=== PATIENT | female | born 1950 | race Asian ===

== ENCOUNTER 2018-08-23 20:40 | Emergency (ER) | payer MEDICARE ==
[~2018-08-23] VITALS: Ht 162.6 cm; Wt 59.1 kg
[2018-08-23] MEDS ORDERED: IV NORMAL SALINE 1000ML BAG 1,000 ML IV ONE (21:00)
[2018-08-23 21:19] LABS: PROTHROMBIN TIME PATIENT 12.1 SEC (11.7-14.0)
--- NOTE | 2018-08-23 21:19 | RAD ---
EXAM: CT Head without IV contrast CLINICAL HISTORY: weakness, slurred speech, no priors COMPARISON: None. TECHNIQUE: Routine CT of the head without contrast. Soft tissues and bone windows were reviewed. PQRS compliance statement - One or more of the following individualized dose reduction techniques were utilized for this study: 1. Automated exposure control 2. Adjustment of the mA and/or kV according to patient size 3. Use of iterative reconstruction technique FINDINGS: There is no evidence of hemorrhage, mass or extra-axial fluid collection. Cotter-white differentiation is maintained with no evidence of edema. There is no mass effect or shift of the intracranial structures. The ventricles, basilar cisterns and cortical sulci are normal in size and configuration for the patients stated age. The cerebellum and brainstem are unremarkable. The calvarium demonstrates no evidence of fracture or focal lesion. Mastoid air cells are clear. Patchy opacification of the scattered ethmoid air cells and right maxillary sinus are partially profiled, likely sinusitis. The visualized portions of the orbits are normal. IMPRESSION: 1. No evidence for acute intracranial hemorrhage 2. Patchy opacification of the scattered ethmoid air cells and right maxillary sinus are partially profiled, likely sinusitis. ::: This critical result of no evidence for acute intracranial hemorrhage was verbally reported by Ba Lobo MD to Dr. Olivarez on 08/23/2018 9:14 PM. ::: Electronically signed by: Ba Lobo MD (08/23/2018 9:15 PM) [facility]
[2018-08-23 21:25] LABS: CALCIUM 9.2 mg/dL (8.5-10.1); CREATININE 0.7 mg/dL (0.6-1.0); GFR 83.5; POTASSIUM 3.4 mmol/L (3.5-5.1)
[2018-08-23] MEDS ORDERED: DEXAMETHASONE SOD PHOS 20 MG/5 ML VIAL. IV ONE (21:30)
[2018-08-23] MEDS ORDERED: METOCLOPRAMIDE HCL 10 MG/2 ML VIAL. IV ONE (21:30)
[2018-08-23] MEDS ORDERED: ASPIRIN 325 MG TABLET PO ONE (21:30)
[2018-08-23] MEDS ORDERED: diphenhydrAMINE 50 MG/ML VIAL IVP ONE (21:30)
[2018-08-23] MEDS ORDERED: IOHEXOL 350 MG/ML 100 ML VIAL. IV ONE (21:30)
[2018-08-23 21:31] LABS: ALBUMIN 3.8 g/dL (3.4-5.0); ALBUMIN/GLOBULIN RATIO 0.9 (1.0-1.7); TOTAL BILIRUBIN 0.6 mg/dL (0.2-1.0); TOTAL PROTEIN 8.1 g/dL (6.4-8.2)
[2018-08-23] MEDS ORDERED: CONTRAST GIVEN. MC PRN (21:45)
[2018-08-23 22:02] LABS: BASO % 1 % (0-3); EOS # 0.3 x10^3/uL (0.0-0.7); EOS % 4 % (0-3); HEMATOCRIT 41.8 % (36.0-47.0); LYMPH # 3.3 x10^3/uL (1.0-4.8); LYMPH % 49 % (24-48); MEAN CORPUSCULAR HEMOGLOBIN 27 pg (25-35); MEAN CORPUSCULAR HGB CONC 34 g/dL (31-37); MEAN CORPUSCULAR VOLUME 81 fL (79-100); MONO # 0.5 x10^3/uL (0.0-1.1); MONO % 7 % (0-9); NEUT # 2.6 x10^3uL (1.8-7.7); NEUT % 39 % (31-73); PLATELET COUNT 212 x10^3/uL (140-400); RED BLOOD COUNT 5.18 x10^6/uL (3.50-5.40); RED CELL DISTRIBUTION WIDTH 12.9 % (11.5-14.5); WHITE BLOOD COUNT 6.7 x10^3/uL (4.0-11.0)
--- NOTE | 2018-08-23 23:11 | RAD ---
EXAM: CT ANGIOGRAM OF THE HEAD AND NECK WITH CONTRAST CLINICAL HISTORY: Right-sided weakness; Omni 350, 75ml COMPARISON: None available. TECHNIQUE: CT angiogram of the head and neck was performed following the administration of IV contrast. Multiplanar reconstructed images were obtained including 3D reconstructed images performed on an independent work station. Stenosis if present in the carotid arteries were measured using NASCET criteria. PQRS compliance statement - One or more of the following individualized dose reduction techniques were utilized for this study: 1. Automated exposure control 2. Adjustment of the mA and/or kV according to patient size 3. Use of iterative reconstruction technique FINDINGS: CTA of the intracranial circulation reveals normal appearing distal internal carotid arteries including the distal cervical, petrous, cavernous and supraclinoid portions. 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 The anterior cerebral arteries are well visualized and without evidence of stenosis or occlusion. The middle cerebral arteries are well visualized and without evidence of stenosis or occlusion. The posterior cerebral arteries are well visualized and without evidence of stenosis or occlusion. The vertebral basilar system is normal with no evidence of stenosis or occlusion. In the neck, the origins of the great vessels are unremarkable. The common carotid arteries, bilaterally are normal with no evidence of significant stenosis or occlusion. The internal carotid arteries are normal bilaterally with no evidence of stenosis. The vertebral arteries in the neck are well visualized bilaterally and unremarkable. Patchy opacification of the right maxillary sinus, possibly sinusitis. IMPRESSION: No evidence for high-grade stenosis, aneurysmal dilatation or occlusion of the intracranial or extracranial circulation. Electronically signed by: Ba Lobo MD (08/23/2018 11:08 PM) [facility]
[2018-08-23 23:50] VITALS: BP 121/68
[2018-08-24] MEDS ORDERED: BUTA1TAB23 PO (00:01)
--- NOTE | 2018-08-24 00:01 | PHYS DOC ---
Past Medical History Additional Past Medical Histor: DEHYDRATION, STOMACH ULCERS Past Surgical History: No Surgical History Alcohol Use: None Drug Use: None Adult General Chief Complaint Chief Complaint: NEURO SYMPTOMS/DEFICITS HPI HPI Patient is a 68 year old [f__sex] who presents with [] Review of Systems Review of Systems Constitutional: Denies fever or chills [] Eyes: Denies change in visual acuity, redness, or eye pain [] HENT: Denies nasal congestion or sore throat [] Respiratory: Denies cough or shortness of breath [] Cardiovascular: No additional information not addressed in HPI [] GI: Denies abdominal pain, nausea, vomiting, bloody stools or diarrhea [] : Denies dysuria or hematuria [] Musculoskeletal: Denies back pain or joint pain [] Integument: Denies rash or skin lesions [] Neurologic: Denies headache, focal weakness or sensory changes [] Endocrine: Denies polyuria or polydipsia [] All other systems were reviewed and found to be within normal limits, except as documented in this note. Current Medications Current Medications Current Medications Medications (Trade) Dose Ordered Sig/Manuel Start Time Stop Time Status Last Admin Dose Admin Aspirin (Ana Aspirin) 325 mg 1X ONCE 08/23/18 21:30 08/23/18 21:31 DC 08/23/18 21:40 325 MG Dexamethasone Sodium Phosphate (Decadron) 10 mg 1X ONCE 08/23/18 21:30 08/23/18 21:31 DC 08/23/18 21:35 10 MG Diphenhydramine HCl (Benadryl) 50 mg 1X ONCE 08/23/18 21:30 08/23/18 21:31 DC 08/23/18 21:38 50 MG Info (CONTRAST GIVEN -- Rx MONITORING) 1 each PRN DAILY PRN 08/23/18 21:45 08/24/18 00:19 DC Iohexol (Omnipaque 350 Mg/ml) 75 ml 1X ONCE 08/23/18 21:30 08/23/18 21:31 DC 08/23/18 22:00 75 ML Metoclopramide HCl (Reglan Vial) 10 mg 1X ONCE 08/23/18 21:30 08/23/18 21:31 DC 08/23/18 21:36 10 MG Sodium Chloride 1,000 ml @ 1,000 mls/hr 1X ONCE 08/23/18 21:00 08/23/18 21:59 DC 08/23/18 21:30 1,000 MLS/HR Allergies Allergies Allergies Coded Allergies Type Severity Reaction Last Updated Verified No Known Drug Allergies 08/23/18 No Physical Exam Physical Exam Constitutional: Well developed, well nourished, no acute distress, non-toxic appearance. [] HENT: Normocephalic, atraumatic, bilateral external ears normal, oropharynx moist, no oral exudates, nose normal. [] Eyes: PERRLA, EOMI, conjunctiva normal, no discharge. [] Neck: Normal range of motion, no tenderness, supple, no stridor. [] Cardiovascular:Heart rate regular rhythm, no murmur [] Lungs & Thorax: Bilateral breath sounds clear to auscultation [] Abdomen: Bowel sounds normal, soft, no tenderness, no masses, no pulsatile masses. [] Skin: Warm, dry, no erythema, no rash. [] Back: No tenderness, no CVA tenderness. [] Extremities: No tenderness, no cyanosis, no clubbing, ROM intact, no edema. [] Neurologic: Alert and oriented X 3, normal motor function, normal sensory function, no focal deficits noted. [] Psychologic: Affect normal, judgement normal, mood normal. [] Current Patient Data Vital Signs Vital Signs Date Time Temp Pulse Resp B/P (MAP) Pulse Ox O2 Delivery O2 Flow Rate FiO2 08/23/18 23:50 88 17 95 08/23/18 20:45 97.7 182/98 (126) Room Air 97.7 Lab Values Laboratory Tests Test 08/23/18 20:50 08/23/18 20:51 White Blood Count 6.7 x10^3/uL (4.0-11.0) Red Blood Count 5.18 x10^6/uL (3.50-5.40) Hemoglobin 14.0 g/dL (12.0-15.5) Hematocrit 41.8 % (36.0-47.0) Mean Corpuscular Volume 81 fL (79-100) Mean Corpuscular Hemoglobin 27 pg (25-35) Mean Corpuscular Hemoglobin Concent 34 g/dL (31-37) Red Cell Distribution Width 12.9 % (11.5-14.5) Platelet Count 212 x10^3/uL (140-400) Neutrophils (%) (Auto) 39 % (31-73) Lymphocytes (%) (Auto) 49 % (24-48) H Monocytes (%) (Auto) 7 % (0-9) Eosinophils (%) (Auto) 4 % (0-3) H Basophils (%) (Auto) 1 % (0-3) Neutrophils # (Auto) 2.6 x10^3uL (1.8-7.7) Lymphocytes # (Auto) 3.3 x10^3/uL (1.0-4.8) Monocytes # (Auto) 0.5 x10^3/uL (0.0-1.1) Eosinophils # (Auto) 0.3 x10^3/uL (0.0-0.7) Basophils # (Auto) 0.0 x10^3/uL (0.0-0.2) Prothrombin Time 12.1 SEC (11.7-14.0) Prothrombin Time INR 0.9 (0.8-1.1) PTT 28 SEC (24-38) Sodium Level 143 mmol/L (136-145) Potassium Level 3.4 mmol/L (3.5-5.1) L Chloride Level 104 mmol/L (98-107) Carbon Dioxide Level 31 mmol/L (21-32) Anion Gap 8 (6-14) Blood Urea Nitrogen 7 mg/dL (7-20) Creatinine 0.7 mg/dL (0.6-1.0) Estimated GFR (Cockcroft-Gault) 83.5 BUN/Creatinine Ratio 10 (6-20) Glucose Level 159 mg/dL (70-99) H Calcium Level 9.2 mg/dL (8.5-10.1) Magnesium Level 2.0 mg/dL (1.8-2.4) Total Bilirubin 0.6 mg/dL (0.2-1.0) Aspartate Amino Transferase (AST) 23 U/L (15-37) Alanine Aminotransferase (ALT) 27 U/L (14-59) Alkaline Phosphatase 68 U/L (46-116) Creatine Kinase 183 U/L (26-192) Creatine Kinase MB (Mass) 2.5 ng/mL (0.0-3.6) Creatine Kinase MB Relative Index 1.4 % (0-4) Troponin I Quantitative < 0.017 ng/mL (0.000-0.055) Total Protein 8.1 g/dL (6.4-8.2) Albumin 3.8 g/dL (3.4-5.0) Albumin/Globulin Ratio 0.9 (1.0-1.7) L Glucose (Fingerstick) 158 mg/dL (70-99) H Laboratory Tests 08/23/18 20:50 Laboratory Tests 08/23/18 20:50 EKG EKG EKG taken on 08/23/2018 at 2053. Sinus rhythm at 95 bpm. T wave inversion in leads V1 through V3. No STEMI appreciated. Radiology/Procedures Radiology/Procedures [] Course & Med Decision Making Course & Med Decision Making Pertinent Labs and Imaging studies reviewed. (See chart for details) [] Dragon Disclaimer Dragon Disclaimer This electronic medical record was generated, in whole or in part, using a voice recognition dictation system. Departure Departure Impression: Primary Impression: Atypical migraine Disposition: 01 HOME, SELF-CARE Condition: IMPROVED Referrals: SURJIT VARGAS (PCP) MORALES NASH MD Patient Instructions: Migraine Headache, Govw-os-Riup Additional Instructions: If symptoms become worse or for return of numbness, vision changes, or weakness , return immediately to the Emergency Department. Scripts Butalb/Acetaminophen/Caffeine ([id number] 50-325-40) 1 Each Tablet 1 EACH PO Q6HRS PRN for HEADACHE, #14 TAB Prov: DAGOBERTO LEMOS DO 08/24/18 DAGOBERTO LEMOS DO Aug 24, 2018 00:01
--- NOTE | 2018-08-24 00:15 | RAD ---
AP portable chest radiograph 08/23/2018 Clinical History: Weakness. An AP erect portable digital radiograph of the chest was obtained. No previous studies are available for comparison. The cardiac silhouette is mildly enlarged. The thoracic aorta is tortuous. Atherosclerotic calcification thoracic aorta is seen. No acute pulmonary infiltrate is noted. No pneumothorax or pleural effusion is seen. Mild degenerative changes are seen involving the thoracic spine and both shoulders. IMPRESSION: No acute abnormality is seen. Electronically signed by: Juan Butterfield MD (08/24/2018 12:13 AM) [facility]
--- NOTE | 2018-08-24 04:02 | EKG ---
[facility] [address] [place] [address] Test Date: 2018-08-23 Test Time: 20:53:31 Pat Name: MICKEY PORTER Department: Room: Gender: F [employer]: : 1950 Requested By: DAGOBERTO LEMOS Order Number: [id number] Reading MD: Efren Puri MD Measurements Intervals [place] Rate: 96 P: 25 LA: 170 QRS: -5 QRSD: 94 T: 47 QT: 372 QTc: 471 Interpretive Statements SINUS RHYTHM VENTRICULAR PREMATURE COMPLEX(ES) Electronically Signed On 08-27-2018 21:59:35 CDT by Efren Puri MD
== END 2018-08-24 00:19 | disposition home or self-care (01) ==
LOC: ER 20:40
DX: G43.809 Other migraine, not intractable, without status migrainosus (principal)
CPT/HCPCS: 36415; 70450; 70496; 70498; 71045; 80053; 82553; 82962; 83735; 84484; 85025; 85610; 85730; 93005; 96374; 96375; 99284; J1100; J1200; J2765; J7030; Q9967

== ENCOUNTER → 2018-11-18 | Outpatient (CLI) | payer MEDICARE ==
[~2018-11-18] MED LIST: BUTA1TAB23 PO
--- NOTE | 2018-11-22 09:24 | RAD ---
DATE: 11/18/2018 8:30 AM EXAM: MAMMO OLEKSANDR SCREENING BILATERAL HISTORY: routine screening evaluation. COMPARISON: 07/18/2010, 02/21/2016 Bilateral CC and MLO views of the breasts were performed. Bilateral breast tomosynthesis was performed in CC and MLO projections. This study was interpreted with the benefit of Computerized Aided Detection (CAD). Breast Density: The breast parenchyma shows scattered fibroglandular densities. Breast parenchyma level B. FINDINGS: Benign calcifications are present. The parenchymal pattern appears stable. No suspicious masses, microcalcifications or architectural distortion is present to suggest malignancy in either breast. The visualized axillae are unremarkable. IMPRESSION: No mammographic evidence of malignancy. BI-RADS CATEGORY: 2 BENIGN FINDING(S) RECOMMENDED FOLLOW-UP: 12M 12 MONTH FOLLOW-UP Annual screening mammography is recommended, unless clinically indicated sooner based on symptoms or change in physical exam. PQRS compliance statement: Patient information was entered into a reminder system with a target due date 11/22/2019 for the next mammogram. Mammography is a sensitive method for finding small breast cancers, but it does not detect them all and is not a substitute for careful clinical examination. A negative mammogram does not negate a clinically suspicious finding and should not result in delay in biopsying a clinically suspicious abnormality. "Our facility is accredited by the [employer] Mammography Program." [facility]
== END | disposition home or self-care (01) ==
LOC: MAMMO 08:23
PROVIDERS: ATTEND Family Medicine
DX: Z12.31 Encounter for screening mammogram for malignant neoplasm of breast (principal); N64.89 Other specified disorders of breast
CPT/HCPCS: 77063; 77067